=== PATIENT | male | born 1955 | race Caucasian/White ===

== ENCOUNTER → 2018-05-12 | Outpatient (CLI) | payer OTHER ==
--- NOTE | 2018-05-12 10:03 | RADIOLOGY REPORT (SQ) ---
EXAM DESCRIPTION: MRI LT UPPER JOINT WITHOUT COMPLETED DATE/TIME: 05/12/2018 9:21 am REASON FOR STUDY: PAIN IN LEFT SHOULDER M25.512 PAIN IN LEFT SHOULDER COMPARISON: None. TECHNIQUE: Left shoulder images acquired and stored on PACS. Multiplanar imaging to include fat sens itive sequences such as T1, water sensitive sequences such as FST2/STIR, cartilage sensitive sequence s such as FSPD/gradient-echo sequences. LIMITATIONS: None. FINDINGS: BONE MARROW AND CORTEX: No worrisome bone lesions or marrow replacement. No occult fractur es. JOINT OR BURSAL EFFUSION: Intra and extra-articular fluid. GLENO-HUMERAL ARTICULATION: Normal articulation. No subluxation. No cystic change. No osteophytes or cartilage loss. ACROMION AND AC JOINT: Type 2 acromion . Small distal acromial spur. Mild AC joint arthropathy. ROTATOR CUFF AND INTERVAL: Full-thickness tear of the supraspinatus extending to articular surface pa rtial tear of the infraspinatus. General retraction without delamination. No muscle atrophy. Subsc apularis intact. No rotator interval tear. No rotator interval thickening to suggest adhesive capsulitis. LABRUM AND BICEPS LABRAL COMPLEX: Type 2 slap tear of the superior labrum extends to longitudinal s plit tear of the proximal biceps. The distal biceps is in its normal anatomic location. REMAINDER OF LABRUM AND IGHL : No gross tear or paralabral cyst formation. Labral evaluation is less than optimal without joint distention. No thickening of IGHL to suggest adhesive capsulitis. PERIARTICULAR AND ADJACENT SOFT TISSUES: No masses or abnormal nodes. OTHER: No other significant finding. IMPRESSION: Complete full-thickness tear of the supraspinatus with extension as a an articular surfa ce partial tear of the infraspinatus. No muscle atrophy. Type 2 slap tear superior labrum extending to a longitudinal split tear of the proximal biceps. Intra and extra-articular fluid. TECHNICAL DOCUMENTATION: JOB ID: [id number] [employer]- All Rights Reserved Reading location - IP/workstation name: [email or web address]
== END ==
LOC: RAD 08:08
PROVIDERS: ATTEND Orthopaedic Surgery
DX: M25.512 Pain in left shoulder (principal); M75.122 Complete rotator cuff tear or rupture of left shoulder, not specified as traumatic

== ENCOUNTER 2018-07-03 08:43 | Day surgery (SDC) | payer OTHER ==
[2018-06-26 10:11] LABS: HEMATOCRIT 44.3 % (37.9-51.0); HEMOGLOBIN 15.5 g/dL (13.5-17.0); MEAN CORPUSCULAR HEMOGLOBIN 30.7 pg (27.0-33.4); MEAN CORPUSCULAR HGB CONC 34.9 g/dL (32.0-36.0); MEAN CORPUSCULAR VOLUME 88 fl (80-97); PLATELET COUNT 314 10^3/uL (150-450); RED BLOOD COUNT 5.05 10^6/uL (4.35-5.55); RED CELL DISTRIBUTION WIDTH 13.5 % (11.5-14.0); WHITE BLOOD COUNT 7.9 10^3/uL (4.0-10.5)
[2018-06-26 10:18] LABS: APPEARANCE,URINE CLEAR; BILIRUBIN,URINE NEGATIVE (NEGATIVE); COLOR,URINE YELLOW; GLUCOSE, URINE NEGATIVE (NEGATIVE); KETONES,URINE NEGATIVE (NEGATIVE); LEUKOCYTE ESTERASE,URINE NEGATIVE (NEGATIVE); NITRITE,URINE NEGATIVE (NEGATIVE); PROTEIN,URINE NEGATIVE (NEGATIVE); URINE SPECIFIC GRAVITY 1.018; UROBILINOGEN,URINE NEGATIVE mg/dL (<2.0)
[2018-06-26 10:29] LABS: ANION GAP 13 (5-19); BLOOD UREA NITROGEN 24 mg/dL (7-20); CALCIUM 9.8 mg/dL (8.4-10.2); CARBON DIOXIDE 29 mmol/L (22-30); CHLORIDE 104 mmol/L (98-107); GLUCOSE 102 mg/dL (75-110); SODIUM 145.6 mmol/L (137-145)
--- NOTE | 2018-06-26 10:56 | RADIOLOGY REPORT (SQ) ---
EXAM DESCRIPTION: CHEST PA/LATERAL COMPLETED DATE/TIME: 06/26/2018 9:59 am REASON FOR STUDY: PRE-OP COMPARISON: 07/13/2016 EXAM PARAMETERS: NUMBER OF VIEWS: two views TECHNIQUE: Digital Frontal and Lateral radiographic views of the chest acquired. RADIATION DOSE: NA LIMITATIONS: none FINDINGS: LUNGS AND PLEURA: No opacities, masses or pneumothorax. No pleural effusion. MEDIASTINUM AND HILAR STRUCTURES: No masses or contour abnormalities. HEART AND VASCULAR STRUCTURES: Heart normal size. No evidence for failure. BONES: No acute findings. HARDWARE: None in the chest. OTHER: No other significant finding. IMPRESSION: NO SIGNIFICANT RADIOGRAPHIC FINDING IN THE CHEST. TECHNICAL DOCUMENTATION: JOB ID: [id number] [employer]- All Rights Reserved Reading location - IP/workstation name: [email or web address]
--- NOTE | 2018-06-26 11:20 | EKG REPORT ---
SEVERITY:- NORMAL ECG - SINUS RHYTHM : Confirmed by: Vanita Spear 26-Jun-2018 11:19:42
[~2018-07-03 08:43] MED LIST: ACETAMINOPHEN 1,000 MG/100 ML RTUPB IV ONE; BUPIVACAINE HCL 0.5 % INJ/PF 30 ML SDV ONE; CEFAZOLIN 2 GM/D5W RTU 2 GM/50 ML RTUPB IV PRN; DEXAMETHASONE SOD PHOSPHATE INJ 4 MG/1 ML VIAL ONE; EPHEDRINE SULFATE INJ 50 MG/1 ML AMPULE ONE; EPINEPHRINE INJ/PF 1 MG/1 ML AMPULE ONE; FENTANYL CITRATE INJ/PF 250 MCG/5 ML AMPULE ONE; LACTATED RINGERS 1000 ML IV PRN; LIDOCAINE 0.5% INJ-PF (5 MG/ML) 50 ML SDV SUBCUT PRN; MIDAZOLAM 2 MG/2 ML INJ ONE; ONDANSETRON HCL INJ/PF 4 MG/2 ML SDV ONE; PROPOFOL INJ 200 MG/20 ML VIAL IV ONE
[2018-07-03] MEDS ORDERED: CEFAZOLIN 2 GM/D5W RTU 2 GM/50 ML RTUPB IV ONE (10:18)
[2018-07-03] MEDS ORDERED: DIPHENHYDRAMINE HCL 50 MG/ML VIAL IV PRN (10:39)
[2018-07-03] MEDS ORDERED: FENTANYL CITRATE INJ/PF 100 MCG/2 ML AMPUL IV PRN ×2 (10:39)
[2018-07-03] MEDS ORDERED: ONDANSETRON HCL INJ/PF 4 MG/2 ML SDV IV PRN ×2 (10:39→13:20)
[2018-07-03] MEDS ORDERED: MORPHINE SULFATE 10 MG/ML INJ IV PRN ×2 (10:39→13:20)
[2018-07-03] MEDS ORDERED: MEPERIDINE HCL/PF INJ 25 MG/1 ML DISP.SYRIN IV PRN (10:39)
[2018-07-03] MEDS ORDERED: PROMETHAZINE HCL INJ 25 MG/1 ML VIAL IV PRN ×2 (10:39)
[2018-07-03] MEDS ORDERED: OXYCODONE-ACETAMINOPHEN 5-325 MG TABLET PO PRN (13:20)
--- NOTE | 2018-07-03 13:21 | Discharge Summary ---
Discharge Summary (SDC) - Discharge Final Diagnosis: Left shoulder rotator cuff tear with degenerative SLAP Date of Surgery: 07/03/18 Discharge Date: 07/03/18 Condition: Good Treatment or Instructions: Schedule Follow Up w/ Dr. Claus Alonzo @ [facility] for Surgery to be seen in 10-14 days or as scheduled [place]: [place]: [place]: May remove dressing on postop day #3, keep incision covered and dry. Cryocuff to shoulder May begin pendulum exercises along w/ hand, wrist and elbow range of motion 4x per day or as tolerated. May remove sling for hygiene purposes otherwise continue it at all times. Stool softener of choice when on pain medication. Prescriptions: Oxycodone HCl/Acetaminophen [Percocet 5-325 mg Tablet] 1 tab PO Q6 PRN #25 tab PRN Reason: Discharge Diet: As Tolerated Respiratory Treatments at Home: Deep Breathing/Coughing Discharge Activity: No Lifting Over 10 Pounds, No Lifting/Push/Pulling Report the Following to Your Physician Immediately: Fever over 101 Degrees, Unusual Bleeding, Redness, Swelling, Warmth, Increased Soreness
--- NOTE | 2018-07-03 13:30 | Operative Report ---
Operative Report DATE OF SURGERY: 07/03/18 PREOPERATIVE DIAGNOSIS: Left shoulder rotator cuff tear, degenerative SLAP tear with impingement syndrome POSTOPERATIVE DIAGNOSIS: Irreparable rotator cuff tear left shoulder, degenerative SLAP tear, impingement syndrome OPERATION: Left shoulder arthroscopy with subacromial decompression, acromioplasty rotator cuff repair with superior capsular reconstruction, open subpectoral biceps tenodesis SURGEON: LEI REA ANESTHESIA: GA COMPLICATIONS: None ESTIMATED BLOOD LOSS: Minimal PROCEDURE: Indication for above procedure: 63-year-old male with long-standing history of bilateral shoulder pain. Patient was initially treated for his right shoulder for rotator cuff repair and required superior capsular reconstruction. Postoperatively patient did well but then began having discomfort in his left shoulder. At that point we attempted conservative measures including home exercise program and injections without resolution. Patient then had MRI which demonstrated full-thickness rotator cuff tear with retraction. We discussed operative versus nonoperative intervention joint decision was made to proceed with operative treatment. Procedure In Detail: Patient was seen and evaluated in the preoperative holding area. The LEFT upper extremity was initialized and marked. Patient received 2g of Ancef IV for bacterial prophylaxis. Patient was taken back to the operative room where transferred to the operative table and placed under general anesthesia. Once they were adequately patient was placed in the beachchair position cervical spine placed in a neutral position. Bilateral lower extremities and right upper extremity were carefully padded and all bony prominences padded as well. A surgical team debriefing was performed ensuring all instrumentation was available, the surgical procedure was discussed with possible concerns reviewed. The upper extremity was prepped with ChloraPrep and draped in a sterile fashion. A timeout was done identifying correct patient, procedure and extremity everyone in attendance agree with this and verbalized no concerns. Posterior lateral portal was established arthroscope was introduced into the glenohumeral joint, anterior portal established. Diagnostic arthroscopy demonstrated degenerative SLAP with evidence of intra-articular synovitis. The biceps anchor was then released to allow for later tenodesis. The labrum was carefully debrided. Subscapularis was inspected without evidence of disruption. There is no evidence of glenohumeral arthritis. There was evidence of a full-thickness rotator cuff tear including the supraspinatus retracted back to the glenoid base. The cuff was elevated to attempt more excursion for repair however given the amount of retraction repair was reasonable. Further inspection demonstrated disruption of the infraspinatus along its articular surface with the lateral aspect intact. Arthroscope was then introduced into the subacromial space lateral portal established. Subacromial bursectomy was performed. The coracoacromial ligament was released but not excised. Acromioplasty performed removing the anterior acromial spur. Inspection of the rotator cuff demonstrated full- thickness supraspinatus tear. Further elevation and release was performed to attempt primary repair once again inadequate excursion was achieved to perform primary repair. The greater tuberosity was then debrided down to cancellus bone to promote graft healing. The glenoid was debrided and a Nevisers portal established. Via triangulation the posterior vaginal wall was placed to the glenoid with attention at the glenoid face to avoid inadvertent intra-articular placement. Via the anterior portal the anterior glenoid hole was then established. These were both marked for later retrieval. The medial row swivel lock anchors were then placed through separate stab incisions. The glenoid and tuberosity lengths were measured along with the anterior and posterior lengths with the arm in a neutral position. The dermal allograft was then placed on the back table. These measurements were then marked on the dermal allograft with additional 5 mm on either side calculated. Horizontal mattress FiberWire was placed through the medial aspect and the sutures from the swivel locks were placed along the lateral aspect. The graft was then shuttled and placed along the glenoid. Push lock anchors were then placed at the anterior and posterior glenoid face respectively utilizing the previous horizontal mattress sutures. For details of the tuberosity row were then cut one was taken from the anterior and one from the posterior and fed into a swivel lock anchor and placed along the lateral row tensioning with the arm in neutral position. This was performed similarly an additional lateral row anchor anteriorly was placed. This provided optimal fixation of the dermal allograft. Additional 2-0 FiberWire was then loaded through the scorpion and side to side sutures were placed through the infraspinatus and secured. The remaining sutures from the glenoid was then fed through any remnant rotator cuff medially to provide a vascular pedicle. At completion patient had full range of motion there is no evidence of superior humeral migration. Attention then turned to the biceps tenodesis. Longitudinal skin incision was made along the inferior third of the pectoralis major. Blunt dissection was performed identifying the inferior border of the pectoralis major. Any peripheral vasculature was carefully coagulated. I then identified the tenotomized long head of the biceps which was retrieved and brought out the wound. The tendon was then secured 2 centimeters distal to the musculotendinous junction with a #2 fiber loop and the remaining diseased portion of the biceps was excised. The Arthrex biceps tenodesis button was then secured to my biceps tendon. Under direct visualization I then cleared an area along the anterior aspect of the humerus and drilled unicortically. The button was then placed into the unicortical hole and the biceps tendon was shuttled to the anterior cortex of the humerus. I then checked stability of the button confirming maximal fixation. Utilizing the free needle one limb of the remaining FiberWire was secured to the biceps providing further fixation. The elbow was then placed through range of motion to ensure appropriate tension of the biceps with flexion and extension. The wound was then copiously irrigated with normal saline. Any peripheral vasculature was carefully coagulated with Bovie cautery. Skin was closed a running subcuticular 3-0 Monocryl suture reinforced with Dermabond and Steri-Strips. Portal holes were closed with interrupted 3-0 nylon suture. 30 cc of 0.5% bupivacaine without epinephrine was injected for postoperative pain control. Sponge counts, instrument counts, needle counts were correct. Patient was then awoken from anesthesia. Transferred from the operating room table to the operating room stretcher. There was no intraoperative complications patient tolerated procedure well stable to PACU. Postoperative plan: Patient will follow-up in 2 weeks we will set him up for physical therapy 4 weeks postoperatively.
[2018-07-03] MEDS: FENTANYL CITRATE INJ/PF 100 MCG/2 ML AMPUL IV PRN ×2 (13:40→13:47)
[2018-07-03] MEDS ORDERED: FENTANYL CITRATE INJ/PF 100 MCG/2 ML AMPUL ONE (13:40)
[2018-07-03] MEDS: MORPHINE SULFATE 10 MG/ML INJ ONE ×2 (14:02→14:20)
[2018-07-03] MEDS ORDERED: SUCCINYLCHOLINE CHLORIDE INJ 200 MG/10 ML VIAL ONE (14:40)
[2018-07-03] MEDS ORDERED: KETOROLAC TROMETHAMINE 60 MG/2 ML SDV ONE (14:40)
[2018-07-03] MEDS ORDERED: OXYCODONE-ACETAMINOPHEN 5-325 MG TABLET ONE (15:07)
[2018-07-03] MEDS ORDERED: MORPHINE SULFATE 10 MG/ML INJ ONE (16:06)
[2018-07-03] MEDS ORDERED: ONDANSETRON HCL INJ/PF 4 MG/2 ML SDV ONE (16:06)
[2018-07-03 17:26] VITALS: BP 152/89
== END 2018-07-03 17:20 | disposition home or self-care (01) ==
LOC: OROUT 08:43
PROVIDERS: ATTEND Orthopaedic Surgery
DX: M75.122 Complete rotator cuff tear or rupture of left shoulder, not specified as traumatic (principal); S43.432A Superior glenoid labrum lesion of left shoulder, initial encounter; X58.XXXA Exposure to other specified factors, initial encounter; M25.512 Pain in left shoulder; K21.9 Gastro-esophageal reflux disease without esophagitis; F17.210 Nicotine dependence, cigarettes, uncomplicated; Z79.899 Other long term (current) drug therapy
CPT/HCPCS: 93005; 36415; 85027; 80048; 81001; 71046; 93010; 24340; 29827; 29826; C1713 ×3; Q4125; J2250; J3490; J1100; J0171; J1885; J3010 ×2; J2270; J0330; J2405; J2704; J0690; J0131; 1630

== ENCOUNTER 2020-07-05 12:41 | Emergency (ER) | payer OTHER ==
--- NOTE | 2020-07-05 14:43 | ER Document Report ---
Entered by LARA LEVIN SCRIBE 07/05/20 1353 Acting as scribe for:DARYL JERONIMO MD ED General - General Stated Complaint: FEVER COVID+ Time Seen by Provider: 07/05/20 13:47 Mode of Arrival: Ambulatory Information source: Patient Notes: This 65-year-old male patient who tested positive for Covid on Monday, seen here on Monday and found to have left-sided pneumonia, switched from doxycycline to azithromycin presents today with complaints of dehydration. Patient reports that he wakes up in the morning "soaking wet" stating he is "sweating out all of his water". He reports he is nauseated and has some constipation as well. Patient mentions that he has had 2 syncopal events when trying to take a shower which he thinks is due to dehydration. He denies a cough or shortness of br eath. TRAVEL OUTSIDE OF THE [place] IN LAST 30 DAYS: No - Related Data Allergies/Adverse Reactions: amoxicillin Allergy (Mild, Verified 07/05/20 13:34) Past Medical History - General Information source: Patient, [facility] Records - Social History Smoking Status: Never Smoker Cigarette use (# per day): No Frequency of alcohol use: None Drug Abuse: None Lives with: Family Family History: None GI Medical History: Reports: Hx Gastroesophageal Reflux Disease Musculoskeletal Medical History: Reports Hx Arthritis Past Surgical History: Reports: Hx Orthopedic Surgery - Rotator cuff. Right knee surgery. - Immunizations Hx Diphtheria, Pertussis, Tetanus Vaccination: Yes Hx Pneumococcal Vaccination: 03/24/16 Review of Systems - Review of Systems Constitutional: See HPI, Diaphoresis EENT: No symptoms reported Cardiovascular: See HPI, Syncope Respiratory: denies: Cough, Short of breath Gastrointestinal: See HPI, Nausea Genitourinary: No symptoms reported Male Genitourinary: No symptoms reported Musculoskeletal: No symptoms reported Skin: No symptoms reported Hematologic/Lymphatic: No symptoms reported Neurological/Psychological: No symptoms reported -: Yes All other systems reviewed and negative Physical Exam - Vital signs Vitals: Temp Pulse Resp BP Pulse Ox 98.7 F 111 H 24 H 112/62 96 07/05/20 13:20 12 13:20 07/05/20 13:20 07/05/20 13:20 07/05/20 13:20 - Notes Notes: Physical Exam: General: Alert, appears well. HEENT: Normocephalic. Atraumatic. PERRL. Extraocular movements intact. Oropharynx clear. Dry mucous membranes. Nasal congestion. Neck: Supple. Non-tender. Respiratory: No respiratory distress. Coarse breath sounds bilaterally. Cardiovascular: Regular rate and rhythm. Abdominal: Normal Inspection. Non-tender. No distension. Normal Bowel Sounds. Back: No gross abnormalities. Extremities: Moves all four extremities. Upper extremities: Normal inspection. Normal ROM. Lower extremities: Normal inspection. No edema. Normal ROM. Neurological: Normal cognition. AAOx4. Normal speech. Psychological: Normal affect. Normal Mood. Skin: Warm. Dry. Normal color. Course - Re-evaluation Re-evalutation: 07/05/20 14:43 The patient was evaluated during the global COVID-19 pandemic and that diagnosis was suspected/considered upon their initial presentation. Their evaluation, treatment and testing was consistent with current guidelines for patients who present with complaints or symptoms that may be related to COVID-19. - Vital Signs Vital signs: Temp Pulse Resp BP Pulse Ox 98.8 F 97 20 126/69 H 96 07/05/20 19:06 07/05/20 19:06 07/05/20 19:06 07/05/20 19:06 07/05/20 19:06 - Laboratory Results Result Diagrams: 07/05/20 13:45 07/05/20 13:45 Laboratory Results Interpreted: 07/05/20 07/05/20 07/05/20 13:45 13:45 13:45 Lymph % (Auto) 6.8 L Seg Neutrophils % 87.1 H D-Dimer 0.97 H Sodium 133.2 L C-Reactive Protein 203.3 H Urine Protein 07/05/20 13:45 Lymph % (Auto) Seg Neutrophils % D-Dimer Sodium C-Reactive Protein Urine Protein 30 H Critical Laboratory Results Reviewed: No Critical Results - Radiology Results Critical Radiology Results Reviewed: No Critical Results - Patient has unchanged patchy bilateral infiltrates consistent with Covid pneumonia. Discharge - Discharge Clinical Impression: COVID-19, COVID-19 symptoms Nausea and vomiting Qualifiers: Vomiting type: unspecified Vomiting Intractability: non-intractable Qualified Code(s): R11.2 - Nausea with vomiting, unspecified Condition: Stable Disposition: HOME, SELF-CARE Additional Instructions: Take the medications as prescribed. Drink plenty of fluids and get plenty of rest. You are prescribed Zofran to help with nausea. Based on current recommended studies, you were treated with a drug called Ivermectin today, and will be prescribed a dose to take on Monday afternoon. Other recommendations are listed below: Take zinc 75 mg/day, take vitamin D 2000 mg/day, take Pepcid 40 mg twice daily, take 1 baby aspirin every day, take vitamin B complex every day and take vitamin C 500 mg twice a day. Return to the emergency room if you begin feeling short of breath. Otherwise follow-up with your primary care provider when you are feeling better in another 1 to 2 weeks. RETURN TO THE EMERGENCY ROOM IF ANY NEW OR WORSENING SYMPTOMS. Prescriptions: Ivermectin [Stromectol 3 mg Tablet] 3 mg PO ASDIR PRN #6 tablet PRN Reason: Ondansetron [Zofran Odt 4 mg Tablet] 1 - 2 tab PO Q4H PRN #20 tab.rapdis PRN Reason: I personally performed the services described in the documentation, reviewed and edited the documentation which was dictated to the scribe in my presence, and it accurately records my words and actions.
[2020-07-05] MEDS ORDERED: ONDANSETRON HCL INJ/PF 4 MG/2 ML SDV IV ONE (14:44)
[2020-07-05] MEDS ORDERED: DEXTROSE 5%-LACTATED RINGERS 1,000 ML IV ONE ×2 (14:44→16:16)
[2020-07-05 15:15] LABS: ALBUMIN 3.7 g/dL (3.5-5.0); ALKALINE PHOSPHATASE 52 U/L (38-126); ANION GAP 9 (5-19); ASPARTATE AMINO TRANSFERASE 31 U/L (17-59); BILIRUBIN,DIRECT 0.3 mg/dL (0.0-0.4); BILIRUBIN,TOTAL 0.8 mg/dL (0.2-1.3); BLOOD UREA NITROGEN 19 mg/dL (7-20); CALCIUM 8.7 mg/dL (8.4-10.2); CARBON DIOXIDE 26 mmol/L (22-30); CHLORIDE 98 mmol/L (98-107); CREATINE KINASE 55 U/L (55-170); GLUCOSE 101 mg/dL (75-110); POTASSIUM 4.2 mmol/L (3.6-5.0); TOTAL PROTEIN 6.3 g/dL (6.3-8.2)
[2020-07-05 15:18] LABS: ABSOLUTE LYMPHOCYTES (AUTO) 0.6 10^3/uL (0.5-4.7); ABSOLUTE MONOCYTES (AUTO) 0.5 10^3/uL (0.1-1.4); ABSOLUTE NEUT (AUTO) 7.2 10^3/uL (1.7-8.2); BASOPHILS % (AUTO) 0.4 % (0-2); HEMATOCRIT 39.6 % (37.9-51.0); HEMOGLOBIN 13.5 g/dL (13.5-17.0); LYMPHOCYTES % (AUTO) 6.8 % (13-45); MEAN CORPUSCULAR HGB CONC 34.1 g/dL (32.0-36.0); MEAN CORPUSCULAR VOLUME 88 fl (80-97); MONOCYTES % (AUTO) 5.7 % (3-13); PLATELET COUNT 267 10^3/uL (150-450); RED BLOOD COUNT 4.49 10^6/uL (4.35-5.55); RED CELL DISTRIBUTION WIDTH 13.8 % (11.5-14.0); SEGMENTED NEUTROPHILS % (AUTO) 87.1 % (42-78); TOTAL CELLS COUNTED % (AUTO) 100 %; WHITE BLOOD COUNT 8.3 10^3/uL (4.0-10.5)
[2020-07-05 15:19] LABS: INTERNATIONAL RATION (INR) 1.02; PROTHROMBIN TIME 13.6 SEC (11.4-15.4)
[2020-07-05 15:21] LABS: D-DIMER 0.97 ug/mL (0.00-0.50)
[2020-07-05 15:25] LABS: C-REACTIVE PROTEIN 203.3 mg/L (<10.0)
[2020-07-05 15:31] LABS: APPEARANCE,URINE SLIGHTLY-CLOUDY; BILIRUBIN,URINE NEGATIVE (NEGATIVE); COLOR,URINE YELLOW; GLUCOSE, URINE NEGATIVE (NEGATIVE); KETONES,URINE NEGATIVE (NEGATIVE); LEUKOCYTE ESTERASE,URINE NEGATIVE (NEGATIVE); NITRITE,URINE NEGATIVE (NEGATIVE); PROTEIN,URINE 30 mg/dL (NEGATIVE); URINE SPECIFIC GRAVITY 1.019; UROBILINOGEN,URINE NEGATIVE mg/dL (<2.0)
--- NOTE | 2020-07-05 15:58 | RADIOLOGY REPORT (SQ) ---
EXAM DESCRIPTION: CHEST SINGLE VIEW IMAGES COMPLETED DATE/TIME: 07/05/2020 3:09 pm REASON FOR STUDY: Covid infection with constipation COMPARISON: Chest radiographs 07/03/2020. EXAM PARAMETERS: NUMBER OF VIEWS: One view. TECHNIQUE: Single frontal radiographic view of the chest acquired. RADIATION DOSE: NA LIMITATIONS: None. FINDINGS: LUNGS AND PLEURA: Unchanged peripheral airspace opacities within the bilateral lungs. MEDIASTINUM AND HILAR STRUCTURES: No masses. Contour normal. HEART AND VASCULAR STRUCTURES: Heart normal in size. Normal vasculature. BONES: No acute findings. HARDWARE: None in the chest. OTHER: No other significant finding. IMPRESSION: Unchanged bilateral lung opacities compatible with atypical infection. No new acute pul monary findings otherwise. TECHNICAL DOCUMENTATION: JOB ID: [id number] 2010 [employer]- All Rights Reserved Reading location - IP/workstation name: [email or web address]
--- NOTE | 2020-07-05 15:59 | RADIOLOGY REPORT (SQ) ---
EXAM DESCRIPTION: KUB/ABDOMEN (SINGLE VIEW) IMAGES COMPLETED DATE/TIME: 07/05/2020 3:09 pm REASON FOR STUDY: Covid infection with constipation COMPARISON: None. NUMBER OF VIEWS: One view. TECHNIQUE: Supine radiographic image of the abdomen acquired. LIMITATIONS: None. FINDINGS: BOWEL GAS PATTERN: Normal bowel gas pattern. No dilated loops. Stool within the descendin g colon. CALCIFICATIONS: No suspicious calcifications. SOFT TISSUES: No gross mass or suggestion of organomegaly. HARDWARE: None in the abdomen. BONES: No acute fracture. No worrisome bone lesions. OTHER: No other significant finding. IMPRESSION: Nonobstructive bowel gas pattern. Stool within the descending colon. TECHNICAL DOCUMENTATION: JOB ID: [id number] 2010 [employer]- All Rights Reserved Reading location - IP/workstation name: [email or web address]
[2020-07-05] MEDS ORDERED: IVERMECTIN 3 MG TABLET PO ONE (16:21)
[2020-07-05] MEDS ORDERED: ONDANSETRON ODT 4 MG TAB (6 TAB/ER DISP) PO PRN (18:09)
[2020-07-05 19:07] VITALS: BP 126/69
--- NOTE | 2020-07-06 00:16 | EKG REPORT ---
SEVERITY:- NORMAL ECG - SINUS RHYTHM : Confirmed by: Vanita Spear 06-Jul-2020 00:14:36
== END 2020-07-05 19:07 | disposition home or self-care (01) ==
LOC: ER 12:41
DX: U07.1 COVID-19 (principal); R50.9 Fever, unspecified; R11.2 Nausea with vomiting, unspecified; K59.00 Constipation, unspecified
CPT/HCPCS: 93005; 99285; 96361; 96374; 36415; 82550; 85025; 85610; 86140; 80053; 81001; 84484; 85379; 71045; 74018; 93010; J2405; J7121

== ENCOUNTER 2020-07-08 08:13 | Emergency (ER) | payer OTHER ==
[2020-07-08] MEDS ORDERED: NORMAL SALINE 1000 ML 1,000 ML IV ONE (08:46)
--- NOTE | 2020-07-08 08:48 | ER Document Report ---
ED GI/ - General Chief Complaint: Constipation Stated Complaint: COVID+ Time Seen by Provider: 07/08/20 08:18 Notes: HPI: 65-year-old male who presents today, known Covid positive patient, stating that he is having some constipation and still feels diffusely weak. Patient was seen here twice recently. Patient denies any shortness of breath, calf pain, leg swelling, or chest pain. Patient states he has not had a bowel movement 4 days. Patient states he took a full dose of MiraLAX this morning. ROS: See HPI All other review of systems reviewed and otherwise negative Reviewed vital signs and nursing note as charted by RN. PHYSICAL EXAM: CONSTITUTIONAL: Alert and oriented and responds appropriately to questions. Well-appearing; well-nourished HEAD: Normocephalic; atraumatic EYES: PERRL; Conjunctivae clear, sclerae non-icteric ENT: Normal nose; no rhinorrhea; moist mucous membranes; pharynx without lesions noted NECK: Supple without meningismus; non-tender; no cervical lymphadenopathy, no masses CARD: Regular rate and rhythm; no murmurs; symmetric distal pulses RESP: Normal chest excursion without splinting or tachypnea; breath sounds clear and equal bilaterally; scattered rhonchi with oxygen saturation as recorded ABD/GI: Normal bowel sounds; non-distended; soft, non-tender; no palpable masses or abdominal bruits present BACK: The back appears normal and is non-tender to palpation EXT: Normal ROM in all joints; non-tender to palpation; no edema SKIN: No acute lesions noted NEURO: CN 2-12 intact; 5/5 bilateral upper and lower extremity strength with sensation intact to light touch PSYCH: The patient's mood and manner are appropriate. Grooming and personal hygiene are appropriate. TRAVEL OUTSIDE OF THE [place] IN LAST 30 DAYS: No - Related Data Allergies/Adverse Reactions: amoxicillin Allergy (Mild, Verified 07/05/20 13:34) Past Medical History - Social History Smoking Status: Never Smoker Chew tobacco use (# tins/day): No Frequency of alcohol use: None Drug Abuse: None Family History: None - Past Medical History Cardiac Medical History: Denies: Hx Coronary Artery Disease, Hx Heart Attack, Hx Hypertension Pulmonary Medical History: Denies: Hx Asthma, Hx Bronchitis, Hx COPD, Hx Pneumonia Neurological Medical History: Denies: Hx Cerebrovascular Accident, Hx Seizures GI Medical History: Reports: Hx Gastroesophageal Reflux Disease Musculoskeletal Medical History: Reports Hx Arthritis Past Surgical History: Reports: Hx Orthopedic Surgery - Rotator cuff. Right knee surgery. - Immunizations Hx Diphtheria, Pertussis, Tetanus Vaccination: Yes Hx Pneumococcal Vaccination: 03/24/16 Physical Exam - Vital signs Vitals: Temp 98.5 F 07/08/20 08:28 Course - Re-evaluation Re-evalutation: Given the above history and physical in this well-appearing male in no acute distress, vital signs as recorded, not tachypneic or hypoxic, known coronavirus positive patient, stating some constipation after taking MiraLAX this morning, I am hesitant to provide any other stool softeners given I am concerned that the MiraLAX has not yet had time to work. Patient's abdomen is benign. I will provide a liter of fluid as the patient believes he is dehydrated despite a lack of vomiting or diarrhea. If the patient continues to look excellent after the fluid, I believe it is reasonable to discharge the patient home with strict return precautions. I have reviewed the patient's laboratory work from previous visit 2 days ago as well as the KUB that was performed. 07/08/20 08:57 Abdomen is still benign. Vital signs are stable. No tachypnea or hypoxia. Patient will be discharged home with strict return precautions after liter is finished infusing with follow-up with the primary care physician. - Vital Signs Vital signs: Temp Pulse Resp BP Pulse Ox 98.5 F 07/08/20 08:28 - Laboratory Results Critical Laboratory Results Reviewed: No Critical Results - Radiology Results Critical Radiology Results Reviewed: No Critical Results Discharge - Discharge Clinical Impression: COVID-19 Constipation Qualifiers: Constipation type: unspecified constipation type Qualified Code(s): K59.00 - Constipation, unspecified Condition: Good Disposition: HOME, SELF-CARE Additional Instructions: Come back immediately for any difficulty breathing, shortness of breath, abdominal pain, vomiting, inability to have a bowel movement over the next 48 hours after taking the MiraLAX you have taken today, or any other acute problems.
[2020-07-08] MEDS ORDERED: NA PHOS,M-B/NA PHOS,DI-BA (ADULT) 133 ML ENEMA PR ONE (09:27)
[2020-07-08 13:12] VITALS: BP 106/75
== END 2020-07-08 13:11 | disposition home or self-care (01) ==
LOC: ER 08:13
DX: U07.1 COVID-19 (principal); K59.00 Constipation, unspecified; R53.1 Weakness
CPT/HCPCS: 99284; 96360; J3490; J7030